=== PATIENT | female | born 1965 | race Caucasian/White ===

== ENCOUNTER → 2016-05-04 | Outpatient (CLI) | payer SELFPAY ==
[~2016-05-04] MED LIST: ASPIRIN CHEWABL81 MG PO; ASPIRIN325 MG PO; HYDROCHLOROTH12.5 MG PO; LANTUS100 UNIT/1 SC; LASIX20 MG PO; LIPITOR TAB 2020 MG PO; LISINOPRIL10 MG PO; LOPRESSOR 25 MG25 MG PO; METFORMIN HCL1000 MG PO; NITROGLYCERIN4.9 GM PO; NORCO 5-325 TA1 EACH PO; NOVOLOG 10100 UNITS/ SC; PERCOCET 5/325 T1 EA PO; PLAVIX75 MG PO; TOUJEO SC; TRICOR 145 MG145 MG PO; ZANTAC150 MG PO
[2016-05-04 14:34] LABS: BUN/CREATININE RATIO 31 (0-10)
== END ==
LOC: US 13:00
PROVIDERS: Internal Medicine Gastroenterology
DX: R09.89 Other specified symptoms and signs involving the circulatory and respiratory systems (principal); R18.8 Other ascites; K74.60 Unspecified cirrhosis of liver; I70.203 Unspecified atherosclerosis of native arteries of extremities, bilateral legs
CPT/HCPCS: 36415; 80053; 80074; 82103; 82728; 83540; 83550; 86039; 86255; 93925

== ENCOUNTER → 2016-07-01 | Outpatient (CLI) | payer SELFPAY ==
[2016-07-01 10:08] LABS: RED BLOOD COUNT 4.9 M/UL (4.00-5.10); WHITE BLOOD COUNT 8.3 K/UL (4.5-11.0)
[2016-07-01 10:31] LABS: BUN/CREATININE RATIO 15 (0-10)
== END ==
LOC: LAB 09:23
PROVIDERS: Family Medicine
DX: E11.65 Type 2 diabetes mellitus with hyperglycemia (principal); E78.5 Hyperlipidemia, unspecified
CPT/HCPCS: 36415; 80053; 80061; 82043; 82570; 83036; 85025

== ENCOUNTER → 2016-07-27 | Outpatient (CLI) | payer SELFPAY ==
[2016-07-27 10:08] LABS: HEMOGLOBIN 12.2 gm/dl (12.3-15.3); RED BLOOD COUNT 4.22 M/UL (4.00-5.10); WHITE BLOOD COUNT 5.4 K/UL (4.5-11.0)
== END ==
LOC: LAB 09:04
PROVIDERS: Family Medicine
DX: R10.11 Right upper quadrant pain (principal)
CPT/HCPCS: 36415; 85025

== ENCOUNTER → 2016-08-09 | Outpatient (CLI) | payer SELFPAY | LOC: NM 08-03 13:00 | DX: R10.11 Right upper quadrant pain (principal); R93.8 Abnormal findings on diagnostic imaging of other specified body structures | CPT/HCPCS: 78226; A9537 ==

== ENCOUNTER → 2020-05-09 | Outpatient (CLI) | payer OTHER ==
[~2020-05-09] MED LIST changes: +BACTROBAN NASAL1 G1 TOP; +CLEOCIN HCL300 MG PO
[2020-05-09 12:56] LABS: BUN/CREATININE RATIO 21 (0-10)
== END ==
LOC: LAB 10:55
PROVIDERS: Family Medicine
DX: E78.2 Mixed hyperlipidemia (principal); E55.9 Vitamin D deficiency, unspecified; E11.9 Type 2 diabetes mellitus without complications; E87.5 Hyperkalemia
CPT/HCPCS: 36415; 80053; 80061; 82570; 84156

== ENCOUNTER → 2020-07-14 | Outpatient (CLI) | payer OTHER ==
[2020-07-14 11:26] LABS: BUN/CREATININE RATIO 27 (0-10)
== END ==
LOC: LAB 10:09
PROVIDERS: Family Medicine
DX: E11.65 Type 2 diabetes mellitus with hyperglycemia (principal)
CPT/HCPCS: 36415; 80048; 83036

== ENCOUNTER → 2020-08-22 | Outpatient (CLI) | payer OTHER | LOC: DTC 10:52 | DX: E11.65 Type 2 diabetes mellitus with hyperglycemia (principal) | CPT/HCPCS: G0108 ==

== ENCOUNTER → 2020-12-08 | Outpatient (CLI) | payer OTHER ==
[2020-12-08 10:10] LABS: HEMOGLOBIN 13.2 gm/dl (12.3-15.3); RED BLOOD COUNT 4.48 M/UL (4.00-5.10); WHITE BLOOD COUNT 5.2 K/UL (4.5-11.0)
[2020-12-08 10:33] LABS: BUN/CREATININE RATIO 20 (0-10)
== END ==
LOC: LAB 09:33
PROVIDERS: Family Medicine
DX: E78.2 Mixed hyperlipidemia (principal); E55.9 Vitamin D deficiency, unspecified; K21.9 Gastro-esophageal reflux disease without esophagitis; Z79.899 Other long term (current) drug therapy
CPT/HCPCS: 36415; 80053; 80061; 82607; 83735; 85027

== ENCOUNTER → 2021-01-14 | Outpatient (CLI) | payer OTHER | LOC: HEART 5 09:30 | DX: I25.10 Atherosclerotic heart disease of native coronary artery without angina pectoris (principal); R01.1 Cardiac murmur, unspecified; I34.0 Nonrheumatic mitral (valve) insufficiency | CPT/HCPCS: 93306 ==

== ENCOUNTER → 2021-03-16 | Outpatient (CLI) | payer OTHER ==
[2021-03-16 15:25] LABS: HEMOGLOBIN 12.9 gm/dl (12.3-15.3); RED BLOOD COUNT 4.81 M/UL (4.00-5.10); WHITE BLOOD COUNT 10.4 K/UL (4.5-11.0)
[2021-03-17 08:13] LABS: A/G RATIO 1.3 (1.2-2.2); ALKALINE PHOSPHATASE, S 98 IU/L (44-121); ALT (SGPT) 24 IU/L (0-32); AST (SGOT) 26 IU/L (0-40); BILIRUBIN, TOTAL 0.4 mg/dL (0.0-1.2); BUN 22 mg/dL (6-24); BUN/CREATININE RATIO 20 (9-23); CALCIUM, SERUM 9.8 mg/dL (8.7-10.2); CARBON DIOXIDE, TOTAL 25 mmol/L (20-29); CHLORIDE, SERUM 98 mmol/L (96-106); CHOLESTEROL, TOTAL 126 mg/dL (100-199); CREATININE, SERUM 1.12 mg/dL (0.57-1.00); EGFR IF AFRICN AM 63 (>59); EGFR IF NONAFRICN AM 55 (>59); GLOBULIN, TOTAL 3.2 g/dL (1.5-4.5); GLUCOSE, SERUM 200 mg/dL (65-99); HDL CHOLESTEROL 28 mg/dL (>39); LDL CHOLESTEROL CALC 68 mg/dL (0-99); LDL/HDL RATIO 2.4 ratio (0.0-3.2); MAGNESIUM 1.7 mg/dL (1.6-2.3); POTASSIUM, SERUM 4.9 mmol/L (3.5-5.2); PROTEIN, TOTAL, SERUM 7.5 g/dL (6.0-8.5); SODIUM, SERUM 141 mmol/L (134-144); T. CHOL/HDL RATIO 4.5 ratio (0.0-4.4); TRIGLYCERIDES 177 mg/dL (0-149)
== END ==
LOC: LAB 14:57
PROVIDERS: Family Medicine
DX: I10 Essential (primary) hypertension (principal); E78.2 Mixed hyperlipidemia; E11.65 Type 2 diabetes mellitus with hyperglycemia; R94.4 Abnormal results of kidney function studies; Z79.899 Other long term (current) drug therapy
CPT/HCPCS: 36415; 80053; 80061; 82607; 83735; 85027

== ENCOUNTER → 2021-04-03 | Outpatient (CLI) | payer OTHER | LOC: CT 03-20 08:00 | DX: H35.82 Retinal ischemia (principal) | CPT/HCPCS: 36415; 70496; 70498; 82565; Q9967 ==

== ENCOUNTER → 2021-04-06 | Outpatient (CLI) | payer OTHER | LOC: LAB 13:15 | PROVIDERS: Family Medicine | DX: E11.9 Type 2 diabetes mellitus without complications (principal); Z79.4 Long term (current) use of insulin | CPT/HCPCS: 36415; 80048 ==

== ENCOUNTER → 2021-09-04 | Outpatient (CLI) | payer OTHER ==
[2021-09-04 09:29] LABS: HEMOGLOBIN 13.1 gm/dl (12.3-15.3); RED BLOOD COUNT 4.79 M/UL (4.00-5.10); WHITE BLOOD COUNT 8.1 K/UL (4.5-11.0)
[2021-09-04 09:58] LABS: BUN/CREATININE RATIO 21 (0-10)
[2021-09-05 09:12] LABS: CREATININE, URINE 70.1 mg/dL (Not Estab.)
== END ==
LOC: LAB 08:20
PROVIDERS: Family Medicine
DX: E55.9 Vitamin D deficiency, unspecified (principal); E11.8 Type 2 diabetes mellitus with unspecified complications; I10 Essential (primary) hypertension; E78.2 Mixed hyperlipidemia; Z79.899 Other long term (current) drug therapy
CPT/HCPCS: 36415; 80053; 80061; 82043; 82570; 82607; 83735; 84443; 85027

== ENCOUNTER → 2021-09-28 | Outpatient (CLI) | payer OTHER | LOC: KOH-I 10:48 | DX: R91.1 Solitary pulmonary nodule (principal) | CPT/HCPCS: 71250 ==

== ENCOUNTER 2021-10-06 15:04 | Observation (INO) | payer OTHER ==
[~2021-10-06] VITALS: Ht 157.5 cm; Wt 60.4 kg
[~2021-10-06 15:04] MED LIST changes: +HUMALOG100 UNIT/3 SQ; -LIPITOR TAB 2020 MG PO; +LIPITOR40 MG PO
[2021-10-06 16:40] LABS: RED BLOOD COUNT 4.38 M/UL (4.00-5.10); WHITE BLOOD COUNT 5.9 K/UL (4.5-11.0)
[2021-10-06 17:03] LABS: BUN/CREATININE RATIO 31 (0-10)
[2021-10-07 10:12] LABS: HEMOGLOBIN 11.4 gm/dl (12.3-15.3); RED BLOOD COUNT 4.11 M/UL (4.00-5.10)
[2021-10-07 10:14] LABS: WHITE BLOOD COUNT 4.1 K/UL (4.5-11.0)
[2021-10-07 10:25] LABS: BUN/CREATININE RATIO 34 (0-10)
[2021-10-07] MEDS ORDERED: METFORMIN HCL500 M2 PO (10:52)
[2021-10-07] MEDS ORDERED: JARDIANCE25 MG PO (10:54)
[2021-10-07] MEDS ORDERED: OZEMPIC1 MG/0.71 SQ (10:59)
[2021-10-07] MEDS ORDERED: LANTUS SOL100 UNIT/1 SQ (11:00)
[2021-10-07] MEDS ORDERED: PROTONIX40 MG PO (11:02)
[2021-10-07] MEDS ORDERED: LORATADINE10 MG PO (11:04)
[2021-10-07] MEDS ORDERED: MULTIVITAMIN1 EACH PO (11:07)
[2021-10-07] MEDS ORDERED: OMEGA-31000 MG PO (11:10)
[2021-10-07] MEDS ORDERED: VITAMIN D325 MCG PO (11:11)
[2021-10-07] MEDS ORDERED: MAGNESIUM OXID400 M1 PO (11:12)
[2021-10-07] MEDS ORDERED: PROAIR HFA8.5 GM INH (11:12)
[2021-10-08 02:52] LABS: HEMOGLOBIN 12.4 gm/dl (12.3-15.3); RED BLOOD COUNT 4.48 M/UL (4.00-5.10); WHITE BLOOD COUNT 4.3 K/UL (4.5-11.0)
[2021-10-08 03:23] LABS: BUN/CREATININE RATIO 23 (0-10)
[2021-10-08] MEDS ORDERED: HUMIBID LA TAB600 MG PO (10:52)
[2021-10-08] MEDS ORDERED: DECADRON6 MG PO (10:52)
[2021-10-08] MEDS ORDERED: BUDESONIDE0.5 MG/2 M NEB (10:52)
[2021-10-08] MEDS ORDERED: DOXYCYCLINE HY100 M2 PO (10:52)
[2021-10-08] MEDS ORDERED: IPRAT-ALBUT 0.5-3 ML NEB (10:52)
[2021-10-08] MEDS ORDERED: HYDRALAZINE HCL25 MG PO (10:52)
[2021-10-08] MEDS ORDERED: ASPIRIN EC81 MG PO (10:52)
[2021-10-08] MEDS ORDERED: OMNICEF 300 MG300 MG PO (10:52)
[2021-10-08] MEDS ORDERED: LANTUS SOL100 UNIT/1 SQ (11:27)
== END 2021-10-08 13:50 | disposition home or self-care (01) ==
LOC: ER1 15:04 → CDU 18:08 → M/S 21:52
PROVIDERS: Emergency Medicine; ADMIT Internal Medicine
DX: U07.1 COVID-19 (principal); J20.9 Acute bronchitis, unspecified; I95.9 Hypotension, unspecified; N17.9 Acute kidney failure, unspecified; I25.10 Atherosclerotic heart disease of native coronary artery without angina pectoris; E11.9 Type 2 diabetes mellitus without complications; E78.5 Hyperlipidemia, unspecified; R77.8 Other specified abnormalities of plasma proteins; I10 Essential (primary) hypertension; E86.0 Dehydration; I25.2 Old myocardial infarction; Z95.1 Presence of aortocoronary bypass graft
CPT/HCPCS: ECHO; 36415; 71045; 80053; 82550; 82553; 83605; 83880; 84484; 85025; 85027; 85379; 87040; 93005; 93306; 94640; 94664; 94760; 96360; 96372; 96375; 96376; 99285; G0378; J0360; J0696; J1100; J1650

== ENCOUNTER → 2021-10-15 | Outpatient (CLI) | payer OTHER ==
[~2021-10-15] MED LIST changes: +ASPIRIN EC81 MG PO; +BUDESONIDE0.5 MG/2 M NEB; +DECADRON6 MG PO; +DOXYCYCLINE HY100 M2 PO; +HUMIBID LA TAB600 MG PO; +HYDRALAZINE HCL25 MG PO; +IPRAT-ALBUT 0.5-3 ML NEB; +JARDIANCE25 MG PO; +LANTUS SOL100 UNIT/1 SQ; +LORATADINE10 MG PO; +MAGNESIUM OXID400 M1 PO; +METFORMIN HCL500 M2 PO; +MULTIVITAMIN1 EACH PO; +OMEGA-31000 MG PO; +OMNICEF 300 MG300 MG PO; +OZEMPIC1 MG/0.71 SQ; +PROAIR HFA8.5 GM INH; +PROTONIX40 MG PO; +VITAMIN D325 MCG PO
== END ==
LOC: LAB 09:37
PROVIDERS: Internal Medicine
DX: N17.9 Acute kidney failure, unspecified (principal)
CPT/HCPCS: 36415; 80048

== ENCOUNTER → 2021-10-23 | Outpatient (CLI) | payer OTHER ==
[2021-10-23 10:44] LABS: BUN/CREATININE RATIO 22 (0-10)
== END ==
LOC: LAB 09:07
PROVIDERS: Family Medicine
DX: E11.9 Type 2 diabetes mellitus without complications (principal)
CPT/HCPCS: 36415; 80048

== ENCOUNTER → 2021-11-13 | Outpatient (CLI) | payer OTHER | LOC: LAB 12:05 | DX: R30.0 Dysuria (principal); K21.00 Gastro-esophageal reflux disease with esophagitis, without bleeding | CPT/HCPCS: 36415; 81001; 87077; 87086; 87186 ==

== ENCOUNTER → 2021-11-30 | Outpatient (CLI) | payer OTHER ==
[2021-11-30 08:35] LABS: BUN/CREATININE RATIO 27 (0-10)
== END ==
LOC: LAB 07:58
PROVIDERS: Family Medicine
DX: I10 Essential (primary) hypertension (principal)
CPT/HCPCS: 36415; 80048